=== PATIENT | female | born 1985 | race Caucasian/White ===

== ENCOUNTER 2021-08-27 10:43 | Emergency (ER) | payer OTHER ==
[~2021-08-27] VITALS: Ht 160 cm; Wt 52.7 kg
[2021-08-27 13:16] VITALS: BP 113/80
== END 2021-08-27 14:11 | disposition home or self-care (01) ==
LOC: EMS 10:49
DX: Z03.89 Encounter for observation for other suspected diseases and conditions ruled out (principal)
CPT/HCPCS: 74176; 99284; Z7502